=== PATIENT | female | born 2000 | race Hispanic/Latino ===

== ENCOUNTER 2024-03-09 02:16 | Emergency (ER) | payer BC ==
[~2024-03-09] VITALS: Ht 165.1 cm; Wt 54.4 kg
[2024-03-09 02:23] VITALS: TEMP 98.3
[2024-03-09] MEDS: ONDANSETRON HCL INJ 2MG/ML 2ML 2 MG/ML VIAL IV PRN (02:36)
[2024-03-09] MEDS: SODIUM CHLORIDE 0.9% 1000ML 1,000 ML IV STA (02:36)
[2024-03-09] MEDS: MAGNESIUM/ALUMINUM/SIMETHICONE 30 ML UDC PO ONE (02:37)
[2024-03-09] MEDS: BELLADONNA ALK/PHENOBARBITAL 5 ML UDC PO STA (02:37)
[2024-03-09] MEDS: LIDOCAINE VISC 2% SOLN 15 ML UDC PO ONE (02:37)
[2024-03-09 02:38] LABS: BASOPHILS # (AUTO) 0.1 (0.0-0.1); BASOPHILS % 0.5 % (0.0-1.0); EOSINOPHILS % 0.3 % (0.0-6.0); HEMATOCRIT 37.8 % (34.2-44.1); HEMOGLOBIN 12.7 g/dL (12.0-16.0); LYMPHOCYTES # (AUTO) 1.8 (1.0-3.2); LYMPHOCYTES % 17.7 % (18.0-39.1); MEAN CORPUSCULAR HEMOGLOBIN 30.1 pg (28-32); MEAN CORPUSCULAR HGB CONC 33.6 g/dL (31-35); MEAN CORPUSCULAR VOLUME 89.6 fL (81-99); MONOCYTES % 9.8 % (4.4-11.3); NEUTROPHILS # (AUTO) 7.3 (2.1-6.9); NEUTROPHILS % 71.5 % (38.7-80.0); PLATELET COUNT 177 x10e3/uL (140-360); RED BLOOD COUNT 4.22 x10e6/uL (3.6-5.1); RED CELL DISTRIBUTION WIDTH 12.7 % (11.7-14.4); WHITE BLOOD COUNT 10.26 x10e3/uL (4.8-10.8)
[2024-03-09] MEDS ORDERED: BELLADONNA ALK/PHENOBARBITAL 5 ML UDC ONE (02:38)
[2024-03-09] MEDS ORDERED: LIDOCAINE VISC 2% SOLN 15 ML UDC ONE (02:38)
[2024-03-09 03:00] VITALS: PULSE 69; RESP 18
[2024-03-09 03:08] LABS: ALBUMIN 4.5 g/dL (3.5-5.0); ALBUMIN/GLOBULIN RATIO 1.7 (0.8-2.0); ANION GAP 12.3 mmol/L (8-16); BILIRUBIN,TOTAL 0.5 mg/dL (0.2-1.2); CALCIUM 9.1 mg/dL (8.4-10.2); CREATININE, SERUM 0.68 mg/dL (0.57-1.11); TOTAL PROTEIN 7.1 g/dL (6.5-8.1)
[2024-03-09 03:18] LABS: POTASSIUM 3.3 mmol/L (3.5-5.1)
[2024-03-09] MEDS ORDERED: PANTOPRAZOLE SO40 MG PO (03:30)
[2024-03-09 03:54] VITALS: BP 111/72; O2SAT 100
== END 2024-03-09 03:43 | disposition home or self-care (01) ==
LOC: ER 02:20
DX: R11.2 Nausea with vomiting, unspecified (principal); K29.70 Gastritis, unspecified, without bleeding; R10.13 Epigastric pain
CPT/HCPCS: 36415; 80053; 83690; 84702; 85025; 99284; J2405; J2470; J7030